=== PATIENT | male | born 1975 | race Two or more races ===

== ENCOUNTER 2020-02-01 17:55 | Emergency (ER) | payer SELFPAY ==
[~2020-02-01] VITALS: Ht 175.3 cm; Wt 71.2 kg
[2020-02-01] MEDS ORDERED: clonazePAM 0.5 MG TAB PO ONE (19:45)
[2020-02-01] MEDS ORDERED: HYDROcodone-ACET 10/325MG TAB PO ONE (19:45)
[2020-02-01 21:29] VITALS: BP 128/62
== END 2020-02-02 03:35 | disposition home or self-care (01) ==
LOC: ER 17:55
DX: M51.26 Other intervertebral disc displacement, lumbar region (principal); G89.29 Other chronic pain; F43.10 Post-traumatic stress disorder, unspecified; X58.XXXA Exposure to other specified factors, initial encounter; Y93.89 Activity, other specified; Y92.89 Other specified places as the place of occurrence of the external cause; Y99.8 Other external cause status; F41.9 Anxiety disorder, unspecified